=== PATIENT | male | born 1960 | race Caucasian/White ===

== ENCOUNTER 2025-05-14 08:57 | Emergency (ER) | payer MEDICARE, BC ==
[~2025-05-14] VITALS: Ht 177.8 cm; Wt 98.0 kg
[2025-05-14 09:47] LABS: BASOPHILS 0.6 % (0.2-1.2); EOSINOPHILS 2.2 % (0.8-7.0); LYMPHOCYTES 23.0 % (21.8-53.1); MCH 32.6 PG (25.7-32.2); MCHC 34.3 g/dL (32.3-36.5); MCV 94.9 fL (79.0-92.2); MONOCYTES 10.8 % (5.3-12.2); NEUTROPHILS 63.1 % (34.0-67.9); RBC 3.93 M/uL (4.63-6.08)
[2025-05-14 09:56] LABS: INR 1.07 (0.80-1.30); PROTIME 13.2 Sec (11.2-14.2)
[2025-05-14 10:08] LABS: ALCOHOL, MEDICAL <3 mg/dL (<3)
[2025-05-14 10:49] LABS: ALT (SGPT) 17.0 U/L (14-59); AST (SGOT) 16.0 U/L (15-37); GLOMERULAR FILTRATION RATE,EST 97.0 mL/min (>60); PROTEIN, TOTAL 7.3 g/dL (6.4-8.2); UREA NITROGEN 16.0 mg/dL (7-18)
[2025-05-14 10:55] LABS: CORONAVIRUS COVID-19 AG NEGATIVE (NEGATIVE)
[2025-05-14 11:18] LABS: BLOOD/HGB, URINE TRACE-L (Negative); KETONE, URINE NEGATIVE (Negative); LEUK ESTERASE, URINE NEGATIVE (negative); NITRITE, URINE NEGATIVE (negative)
[2025-05-14] MEDS ORDERED: GLIMEPIRIDE4 MG PO (11:31)
[2025-05-14 11:33] LABS: AMPHETAMINES, URINE NEGATIVE (NEGATIVE); BARBITURATES, URINE NEGATIVE (NEGATIVE); BENZODIAZEPINE, URINE NEGATIVE (NEGATIVE); CANNABINOID, URINE POSITIVE (NEGATIVE); COCAINE, URINE NEGATIVE (NEGATIVE); ECSTASY, URINE NEGATIVE (NEGATIVE); FENTANYL, URINE NEGATIVE (NEGATIVE); METHADONE, URINE NEGATIVE (NEGATIVE); OPIATES, URINE NEGATIVE (NEGATIVE); OXYCODONE, URINE NEGATIVE (NEGATIVE); PHENCYCLIDINE, URINE NEGATIVE (NEGATIVE)
[2025-05-14 11:46] LABS: BACTERIA, URINE NONE SEEN /hpf (negative); CASTS, URINE NONE SEEN \\lpf; CRYSTALS, URINE NONE SEEN (0-1+); EPITHELIAL CELLS, URINE 0 /lpf (0-1+); REFLEX CULTURE, URINE No (No)
[2025-05-14] MEDS ORDERED: ASPIRIN 325 MG TAB PO ONE (12:15)
--- NOTE | 2025-05-17 19:32 | EKG ---
[facility] [address] [facility] [place] [address] Signed Normal sinus rhythm Abnormal QRS-T angle, consider primary T wave abnormality Abnormal ECG No previous ECGs available Confirmed by Thiago Chavez MD () on 05/17/2025 7:32:51 PM Electronically Signed By: THIAGO CHAVEZ MD 05/17/251931 PATIENT NAME: ASHLEE LIN Electrocardiogram DATE OF : 60 PHYSICIAN: THIAGO CHAVEZ MD REPORT #: [id number] REPORT IS CONFIDENTIAL AND NOT TO BE RELEASED WITHOUT AUTHORIZATION
== END 2025-05-14 16:41 | disposition short-term general hospital (02) ==
LOC: ED 08:57
PROVIDERS: Emergency Medicine
DX: I63.9 Cerebral infarction, unspecified (principal); R79.89 Other specified abnormal findings of blood chemistry; E11.9 Type 2 diabetes mellitus without complications
CPT/HCPCS: 36415; 70450; 70496; 70498; 70551; 71045; 80053; 80307; 81001; 82140; 82800; 83036; 83880; 84484; 85025; 85610; 93005; 93010; 99285-25; G0480; Q9967